=== PATIENT | male | born 1940 | race Caucasian/White ===

== ENCOUNTER 2016-05-17 20:04 | Inpatient (IN) | payer MEDICARE, BC ==
[~2016-05-17] VITALS: Ht 180.3 cm; Wt 97.5 kg
[2016-05-17] MEDS: DUONEB INH SCH ×2 (20:10→23:42)
[2016-05-17] MEDS ORDERED: PHARMACY TO DOSE LEVAQUIN IV SCH (20:10)
[2016-05-17] MEDS ORDERED: ONDANSETRON 4 MG VIAL IV PRN (20:10)
[2016-05-17] MEDS ORDERED: GLUCAGON 1 MG VIAL IM PRN (20:10)
[2016-05-17] MEDS ORDERED: SALINE FLUSH 10 ML FLUSH PRN (20:10)
[2016-05-17] MEDS: SALINE FLUSH 10 ML FLUSH SCH (20:10)
[2016-05-17] MEDS ORDERED: DEXTROSE 50% SYRINGE 50 ML IV PRN (20:10)
[2016-05-17 22:45] VITALS: BP_SYST 118; BP_SYST 130; RESP 22; TEMP 99
[2016-05-17] MEDS: SODIUM CHLORIDE 0.9% 1,000 ML IV SCH (22:59)
[2016-05-17 23:00] VITALS: Ht 180.3 cm; Wt 97.5 kg
[2016-05-17 23:42] VITALS: RESP 20
[2016-05-18] VITALS (7 sets, daily range): BP systolic 111–150; RESP 18–20; TEMP 97.7–98.9
[2016-05-18] MEDS ORDERED: LEVOFLOXACIN 750 MG/150 ML 150 ML IV ONE (00:05)
[2016-05-18] MEDS: SODIUM CHLORIDE 0.9% FLUSH BAG 500 ML IV SCH (00:09)
[2016-05-18] MEDS ORDERED: hePARIN 20,000 UNITS in SODIUM CHLORIDE 0.9% 500 ML IV SCH ×2 (01:20→11:45)
[2016-05-18] MEDS ORDERED: hePARIN in D5W (40 UNITS/ML) 500 ML IV SCH (01:50)
[2016-05-18] MEDS: DUONEB INH SCH ×6 (02:47→23:23)
[2016-05-18] MEDS: ACETAMINOPHEN 325 MG TAB PO PRN ×3 (07:23→20:13)
[2016-05-18] MEDS: SODIUM CHLORIDE 0.9% 1,000 ML IV SCH ×2 (07:24→20:13)
[2016-05-18] MEDS: SALINE FLUSH 10 ML FLUSH SCH ×2 (08:00→20:43)
[2016-05-18] MEDS: ASPIRIN 81 MG CHEW TAB PO SCH (09:24)
[2016-05-18] MEDS ORDERED: OPTIRAY 350 100 ML VIAL HMH IV ONE ×2 (15:21→18:24)
[2016-05-19] VITALS (7 sets, daily range): BP systolic 122–172; RESP 18–20; TEMP 97.5–98.6
[2016-05-19] MEDS: ACETAMINOPHEN 325 MG TAB PO PRN ×4 (02:00→20:24)
[2016-05-19] MEDS: DUONEB INH SCH ×6 (03:10→22:56)
[2016-05-19] MEDS: SODIUM CHLORIDE 0.9% FLUSH BAG 500 ML IV SCH (06:00)
[2016-05-19] MEDS: ASPIRIN 81 MG CHEW TAB PO SCH (09:01)
[2016-05-19] MEDS: SALINE FLUSH 10 ML FLUSH SCH ×2 (09:02→20:00)
[2016-05-19] MEDS ORDERED: SODIUM CHLORIDE 0.9% 1,000 ML IV SCH ×2 (18:25→18:30)
[2016-05-19] MEDS ORDERED: LEVOFLOXACIN 750 MG/150 ML 150 ML IV SCH (21:00)
[2016-05-20] MEDS: SODIUM CHLORIDE 0.9% FLUSH BAG 500 ML IV SCH (02:12)
[2016-05-20] MEDS: DUONEB INH SCH ×3 (02:23→10:40)
[2016-05-20] MEDS: ACETAMINOPHEN 325 MG TAB PO PRN ×2 (02:28→09:47)
[2016-05-20 03:26] VITALS: BP_SYST 154; RESP 20; TEMP 97.5
[2016-05-20 07:47] VITALS: BP_SYST 155; RESP 20; TEMP 97.6
[2016-05-20] MEDS: SALINE FLUSH 10 ML FLUSH SCH (09:37)
[2016-05-20] MEDS: ASPIRIN 81 MG CHEW TAB PO SCH (09:37)
[2016-05-20 11:23] VITALS: BP_SYST 147; RESP 20; TEMP 97.4
[2016-05-20 13:28] VITALS: BP_SYST 147; RESP 20; TEMP 97.4
[2016-05-20] MEDS ORDERED: LEVOFLOXACIN 750 MG/150 ML 150 ML IV SCH (21:00)
== END 2016-05-20 14:18 | disposition home or self-care (01) | DRG 948 ==
LOC: ENPENDDIS 22:45 → 3NT 22:45
PROVIDERS: ADMIT Internal Medicine; ATTEND Hospitalist
DX: R41.82 Altered mental status, unspecified (principal); N18.4 Chronic kidney disease, stage 4 (severe); E11.22 Type 2 diabetes mellitus with diabetic chronic kidney disease; I13.10 Hypertensive heart and chronic kidney disease without heart failure, with stage 1 through stage 4 chronic kidney disease, or unspecified chronic kidney disease; T48.205A Adverse effect of unspecified drugs acting on muscles, initial encounter; R09.02 Hypoxemia; E78.5 Hyperlipidemia, unspecified; H35.30 Unspecified macular degeneration; J44.9 Chronic obstructive pulmonary disease, unspecified; E86.1 Hypovolemia; M50.30 Other cervical disc degeneration, unspecified cervical region; Z87.891 Personal history of nicotine dependence; Z85.038 Personal history of other malignant neoplasm of large intestine
CPT/HCPCS: 70551; 71260; 72050; 72125; 72141; 80053; 82553; 82803; 82947; 84484; 85025; 85379; 85610; 85652; 85730; 87088; 94640; 94799; 99222; 99233; 99239